=== PATIENT | male | born 1985 | race Caucasian/White ===

== ENCOUNTER 2017-10-18 10:04 | Inpatient (IN) | payer OTHER ==
[~2017-10-18] VITALS: Ht 180.3 cm; Wt 95.5 kg
--- NOTE | ~2017-10-18 | OP ---
PATIENT NAME: JUVENAL MENDOZA MEDICAL RECORD: [id number] :85 LOCATION:[id number] ADMISSION DATE:10/18/17 SURGEON: RAMON BAKER MD DATE OF OPERATION: 10/18/2017 SURGEON: Ramon Baker MD PREOPERATIVE DIAGNOSIS: Rectal foreign body. POSTOPERATIVE DIAGNOSIS: Retained rectal foreign body. ANESTHESIA: Total intravenous anesthesia. PROCEDURE: Flexible sigmoidoscopy with attempted retrieval of rectal foreign body. COMPLICATIONS: None. SPECIMENS: None. Case was contaminated. ESTIMATED BLOOD LOSS: 40 cc. FINANCIAL LEGAL ASSISTANT: Mark Koehler DO OPERATIVE COURSE: After consent was obtained, the patient was taken to the endoscopy suite. A timeout was taken to confirm the correct patient and procedure, total intravenous anesthesia was given. The patient was placed in the left lateral decubitus position. Digital rectal exam was performed. The foreign body was not able to be palpated. At this time a flexible sigmoidoscopy was performed, a round foam ball of approximately 7.5 cm in diameter was noted to be just above the pelvic brim at approximately 20-25 cm. At this time, the wire was placed through the scope. The wire was past the foreign body. Next, a 20-[place] Collado was advanced along the wire under direct laparoscopic vision. Once the balloon catheter was advanced beyond the ball, it was filled with 30 cc of normal saline. Tension was held on the Collado catheter, the foam ball descended to approximately 10 cm. The narrowing at the pelvic brim at the coccyx, the ball was unable to be traversed across at that time and the ball was just palpable at this time, a second Collado catheter was passed beyond the foreign body and it was again filled with 3 cc of saline. Tension was applied, the ball was unable to be again traversed across the pelvic brim. A basket retrieval device was placed in his rectum. The ball would not tilt in the opening of the basket retrieval device. The ball was grasped with a [place] clamp and chunks of the foam ball ripped off the ball once grabbed with the Malcolm clamp and placed under tension. At this time, Dr. Mark Koehler assisted, I had previously spent approximately 2 hours using various endoscopic maneuvers trying to retrieve this foreign body, with Dr. Koehler was there, he controlled the scope, again I passed multiple wires above the foam ball as well as basket retrieval devices, the ball was unable to be retrieved and delivered through the rectum endoscopically. After approximately 3 hours, we terminated the procedure and at the end of the case, all needle and instrument counts were correct. No complications occurred. The patient tolerated the procedure well. The patient returned to the recovery room OPERATIVE REPORT [id number] KELLYJUVENAL MARIA ELENA in satisfactory condition. The patient was scheduled for operative intervention first thing in the morning. At the end of the case, all needle and instrument counts were correct. No complications occurred. TRANSINT:[id number] Voice Confirmation ID: [id number] DOCUMENT ID: [id number] RAMON BAKER MD at 0803 CC: [id number] DICTATION DATE: 10/18/171757 [employer] DESIGNER: 10/18/17 2200 ADM IN [place] [id number] [place] [address]
--- NOTE | ~2017-10-18 | OP ---
PATIENT NAME: JUVENAL MENDOZA MEDICAL RECORD: [id number] :85 LOCATION:[id number] ADMISSION DATE:10/18/17 SURGEON: RAMON BAKER MD DATE OF OPERATION: 10/19/2017 SURGEON: Ramon Baker MD PREOPERATIVE DIAGNOSIS: Impacted rectal foreign body. POSTOPERATIVE DIAGNOSIS: Impacted rectal foreign body. PROCEDURE PERFORMED: 1. Exploratory laparotomy. 2. Rectotomy with removal of foreign body. 3. Diverting loop ileostomy. ANESTHESIA: General. COMPLICATIONS: None. SPECIMENS: Rectal foreign body. ESTIMATED BLOOD LOSS: 50 cc. Case was contaminated. OPERATIVE COURSE: After consent was obtained, the patient was taken to the operating room and placed in the supine position on the operating table. Next, general anesthesia was given via endotracheal intubation after a timeout was performed to confirm the correct patient and procedure. A lower midline abdominal incision was made using a 15 blade scalpel. Dissection continued to the level of the external oblique fascia using electrocautery. The midline fascia was opened with electrocautery. The peritoneum was grasped with Brisa clamps and incised with Metzenbaum scissors. The remaining portion of the incision was then opened under direct vision with electrocautery. An Juan retractor was placed. An Ioban had been placed in the abdomen at the time the patient's abdomen was prepped. The sigmoid colon and rectum were identified. The foreign body was palpated. The rectum was opened with a linear incision using a 15-blade scalpel approximately 8 cm. The foreign body was extracted and sent to pathology. The rectum was then irrigated and suctioned. The rectum was closed in 2 layers, a running 3-0 Stratafix suture. The suture line was then imbricated using 3-0 Vicryl silk suture in an interrupted fashion. The rectum and pelvis was then copiously irrigated and suctioned. There were multiple other serosal defects in the area of the impacted foreign body. Serosal defect was repaired with interrupted 3-0 silk suture. BioGlue was placed. The omentum was mobilized and placed on the anterior rectum between the rectum and the bladder. A ALO drain was placed through the left lower quadrant into the rectum. The terminal ileum was identified approximately 12 cm from the ileocecal valve. A Davin was placed in the ileum. A right lower quadrant incision was made, a cruciate incision was made in the fascia. The peritoneum was incised using electrocautery. A diverting loop ileostomy was then delivered through the right lower quadrant incision. The Juan retractor was removed. The fascia was closed with #1 looped PDS. Skin was closed with maria fernanda. ALO drain was secured with 2-0 nylon suture. The midline incision was then covered. Gloves were changed. The right lower quadrant loop ileostomy was then fashioned as a [facility] OPERATIVE REPORT [id number] JUVENAL MENDOZA ileostomy using 3-0 Vicryl suture and ostomy bag was applied. At the end of the case, all needle and instrument counts were correct. No complications occurred. The patient was extubated and transferred to the PACU in stable condition. TRANSINT:[id number] Voice Confirmation ID: [id number] DOCUMENT ID: [id number] RAMON BAKER MD at 1158 CC: [id number] DICTATION DATE: 10/19/17 1052 FLOOR LAYER HELPER: 10/19/17 1148 ADM IN [place] [id number] [place] [id number]
[2017-10-18 22:33] VITALS: BP 111/85; Ht 180.3 cm; Wt 95.5 kg
[2017-10-19] VITALS (12 sets, daily range): BP systolic 103–150; BP diastolic 57–79
[2017-10-19 04:31] LABS: BASOPHILS 0 % (0-2); EOSINOPHILS 0 % (0-7); HEMATOCRIT 44.1 % (42.0-54.0); HEMOGLOBIN 15.2 g/dL (13.5-17.5); IMMATURE GRANULOCYTES 0.3 % (0-5); LYMPHOCYTES 5.4 % (15-50); MCH 31.4 pg (26.0-34.0); MCHC 34.5 g/dL (31.0-37.0); MCV 91.1 fL (80.0-100.0); MEAN PLATELET VOLUME 10.8 fL (7.4-10.4); MONOCYTES 7.7 % (2-11); NEUTROPHILS 86.6 % (40-80); PLATELET COUNT 234 10x3/uL (130-400); RBC 4.84 10x6/uL (4.20-6.10); RDW 12.2 % (11.5-14.5); WBC 14.8 10x3/uL (4.8-10.8)
[2017-10-19 05:03] LABS: ANION GAP 12.3 mmol/L (8-16); CALCIUM 8.3 mg/dL (8.5-10.1); CARBON DIOXIDE 26.2 mmol/L (21.0-32.0); CREATININE - SERUM 1.2 mg/dL (0.6-1.3); MAGNESIUM - SERUM 1.5 mg/dL (1.8-2.4); POTASSIUM - SERUM 3.5 mmol/L (3.5-5.1)
[2017-10-20] VITALS: BP 121/68
[2017-10-20 04:00] VITALS: BP 130/67
[2017-10-20 06:05] LABS: CALC OSMOLALITY 267 mosm/kg (275-300); CALCIUM 8.2 mg/dL (8.5-10.1); CARBON DIOXIDE 25.7 mmol/L (21.0-32.0); CHLORIDE - SERUM 101 mmol/L (98-107); CREATININE - SERUM 1.1 mg/dL (0.6-1.3); GLUCOSE 122 mg/dL (74-106); POTASSIUM - SERUM 3.9 mmol/L (3.5-5.1); SODIUM 134 mmol/L (136-145); UREA NITROGEN 9 mg/dL (7-18); eGFR NON AFRICAN AMERICAN 82 mL/min (90-120)
[2017-10-20 06:45] LABS: HEMATOCRIT 42.7 % (42.0-54.0); HEMOGLOBIN 14.2 g/dL (13.5-17.5); LYMPHOCYTES 9.3 % (15-50); MCH 30.5 pg (26.0-34.0); MCHC 33.3 g/dL (31.0-37.0); MCV 91.6 fL (80.0-100.0); MEAN PLATELET VOLUME 10.5 fL (7.4-10.4); NEUTROPHILS 83.5 % (40-80); PLATELET COUNT 206 10x3/uL (130-400); RBC 4.66 10x6/uL (4.20-6.10); RDW 12.5 % (11.5-14.5); WBC 12.7 10x3/uL (4.8-10.8)
[2017-10-20 07:54] VITALS: BP 118/72
[2017-10-20] MEDS ORDERED: HYDROCODON-ACE1 EAC7 PO (09:11)
[2017-10-20] MEDS ORDERED: IMODIUM2 MG PO (09:13)
[2017-10-20] MEDS ORDERED: LEVAQUIN500 MG PO (13:03)
[2017-10-20] MEDS ORDERED: FLAGYL500 MG PO (13:03)
== END 2017-10-20 15:23 | disposition home health service (06) | DRG 331 ==
LOC: D.ER 10:04 → OBSVTIME 13:14 → D.MS 13:14
PROVIDERS: Surgery
PROC: 0D7P8ZZ Dilation of Rectum, Via Natural or Artificial Opening Endoscopic (ICD-10-PCS; principal; 2017-10-18 14:23)
PROC: 0DCP0ZZ Extirpation of Matter from Rectum, Open Approach (ICD-10-PCS; 2017-10-19)
PROC: 0D1B0Z4 Bypass Ileum to Cutaneous, Open Approach (ICD-10-PCS; 2017-10-19 12:00)
DX: T18.5XXA Foreign body in anus and rectum, initial encounter (principal); X58.XXXA Exposure to other specified factors, initial encounter

== ENCOUNTER → 2017-12-18 07:13 | Outpatient (CLI) | payer OTHER ==
[2017-10-18 22:33] VITALS: BMI 29.3
[~2017-12-18 07:13] MED LIST: CYCLOBENZAPRINE10 MG PO; FLAGYL500 MG PO; HYDROCODON-ACE1 EAC7 PO; IMODIUM2 MG PO; LEVAQUIN500 MG PO; MIRALAX17 GM PO
== END | disposition home or self-care (01) ==
LOC: D.RAD 07:13
DX: K56.609 Unspecified intestinal obstruction, unspecified as to partial versus complete obstruction (principal)

== ENCOUNTER 2017-12-30 07:49 | Inpatient (IN) | payer OTHER ==
[~2017-12-30] VITALS: Ht 180.3 cm; Wt 85.9 kg
[~2017-12-30 07:49] MED LIST changes: -CYCLOBENZAPRINE10 MG PO; -MIRALAX17 GM PO
[2017-12-30 09:48] VITALS: BP 123/55; BMI 26.5
[2017-12-30 20:00] VITALS: BP 119/78
[2017-12-31] VITALS: BP 123/81
[2017-12-31 02:39] VITALS: Ht 180.3 cm; Wt 85.9 kg
[2017-12-31 04:00] VITALS: BP 124/77
[2017-12-31 05:09] LABS: BASOPHILS 0 % (0-2); EOSINOPHILS 0 % (0-7); HEMATOCRIT 35.1 % (42.0-54.0); HEMOGLOBIN 12.1 g/dL (13.5-17.5); IMMATURE GRANULOCYTES 0.4 % (0-5); LYMPHOCYTES 8.6 % (15-50); MCHC 34.5 g/dL (31.0-37.0); MEAN PLATELET VOLUME 9.9 fL (7.4-10.4); MONOCYTES 7.2 % (2-11); NEUTROPHILS 83.8 % (40-80); PLATELET COUNT 247 10x3/uL (130-400); RDW 13.2 % (11.5-14.5); WBC 14.1 10x3/uL (4.8-10.8)
[2017-12-31 05:22] LABS: CALC OSMOLALITY 275 mosm/kg (275-300); CALCIUM 8.3 mg/dL (8.5-10.1); CARBON DIOXIDE 23.3 mmol/L (21.0-32.0); CHLORIDE - SERUM 105 mmol/L (98-107); CREATININE - SERUM 1.1 mg/dL (0.6-1.3); GLUCOSE 144 mg/dL (74-106); MAGNESIUM - SERUM 1.6 mg/dL (1.8-2.4); POTASSIUM - SERUM 4.6 mmol/L (3.5-5.1); SODIUM 136 mmol/L (136-145); UREA NITROGEN 15 mg/dL (7-18); eGFR NON AFRICAN AMERICAN 82 mL/min (90-120)
[2017-12-31 09:19] VITALS: BP 118/68
[2017-12-31 13:03] VITALS: BP 123/71
[2017-12-31 17:18] VITALS: BP 130/71
[2017-12-31 20:02] VITALS: BP 117/65
[2018-01-01 00:17] VITALS: BP 127/55
[2018-01-01 04:59] VITALS: BP 128/74
[2018-01-01 06:19] LABS: BASOPHILS 0.1 % (0-2); EOSINOPHILS 0.3 % (0-7); HEMATOCRIT 31.2 % (42.0-54.0); HEMOGLOBIN 10.3 g/dL (13.5-17.5); IMMATURE GRANULOCYTES 0.2 % (0-5); LYMPHOCYTES 24.2 % (15-50); MCH 30.2 pg (26.0-34.0); MCV 91.5 fL (80.0-100.0); MEAN PLATELET VOLUME 9.8 fL (7.4-10.4); MONOCYTES 9.3 % (2-11); NEUTROPHILS 65.9 % (40-80); PLATELET COUNT 224 10x3/uL (130-400); RBC 3.41 10x6/uL (4.20-6.10); RDW 13.6 % (11.5-14.5)
[2018-01-01 06:24] LABS: WBC 9.1 10x3/uL (4.8-10.8)
[2018-01-01 06:31] LABS: CHLORIDE - SERUM 105 mmol/L (98-107); CREATININE - SERUM 0.9 mg/dL (0.6-1.3); GLUCOSE 105 mg/dL (74-106); SODIUM 140 mmol/L (136-145); eGFR NON AFRICAN AMERICAN > 90 mL/min (90-120)
[2018-01-01 06:40] LABS: CALC OSMOLALITY 276 mosm/kg (275-300); CARBON DIOXIDE 30.1 mmol/L (21.0-32.0); MAGNESIUM - SERUM 2.1 mg/dL (1.8-2.4); POTASSIUM - SERUM 3.7 mmol/L (3.5-5.1); UREA NITROGEN 8 mg/dL (7-18)
[2018-01-01 12:26] VITALS: BP 124/75
[2018-01-01 16:04] VITALS: BP 127/73
[2018-01-01 19:28] VITALS: BP 113/62
[2018-01-02 04:22] VITALS: BP 107/62
[2018-01-02 05:30] LABS: BASOPHILS 0.1 % (0-2); HEMATOCRIT 31.2 % (42.0-54.0); HEMOGLOBIN 10.3 g/dL (13.5-17.5); IMMATURE GRANULOCYTES 0.2 % (0-5); LYMPHOCYTES 23.1 % (15-50); MCH 30.3 pg (26.0-34.0); MCV 91.8 fL (80.0-100.0); MEAN PLATELET VOLUME 9.8 fL (7.4-10.4); MONOCYTES 10.8 % (2-11); NEUTROPHILS 64.8 % (40-80); PLATELET COUNT 243 10x3/uL (130-400); RDW 13.4 % (11.5-14.5); WBC 9.2 10x3/uL (4.8-10.8)
[2018-01-02 06:00] LABS: CALC OSMOLALITY 278 mosm/kg (275-300); CALCIUM 8.3 mg/dL (8.5-10.1); CARBON DIOXIDE 29.6 mmol/L (21.0-32.0); CHLORIDE - SERUM 104 mmol/L (98-107); CREATININE - SERUM 1.1 mg/dL (0.6-1.3); GLUCOSE 103 mg/dL (74-106); MAGNESIUM - SERUM 2.4 mg/dL (1.8-2.4); POTASSIUM - SERUM 3.5 mmol/L (3.5-5.1); SODIUM 140 mmol/L (136-145); eGFR NON AFRICAN AMERICAN 82 mL/min (90-120)
[2018-01-02 06:02] LABS: UREA NITROGEN 12 mg/dL (7-18)
[2018-01-02 09:30] VITALS: BP 111/67
[2018-01-02 13:40] VITALS: BP 114/66
[2018-01-02 16:00] VITALS: BP 134/70
[2018-01-02 20:00] VITALS: BP 120/70
[2018-01-03 04:00] VITALS: BP 123/60
[2018-01-03 05:21] LABS: BASOPHILS 0.1 % (0-2); EOSINOPHILS 3.6 % (0-7); HEMOGLOBIN 9.7 g/dL (13.5-17.5); IMMATURE GRANULOCYTES 0.3 % (0-5); LYMPHOCYTES 27.3 % (15-50); MCH 30.3 pg (26.0-34.0); MCHC 33.4 g/dL (31.0-37.0); MCV 90.6 fL (80.0-100.0); MEAN PLATELET VOLUME 9.5 fL (7.4-10.4); MONOCYTES 9.1 % (2-11); NEUTROPHILS 59.6 % (40-80); PLATELET COUNT 239 10x3/uL (130-400); RDW 13.3 % (11.5-14.5)
[2018-01-03 05:26] LABS: WBC 6.7 10x3/uL (4.8-10.8)
[2018-01-03 05:41] LABS: CALC OSMOLALITY 279 mosm/kg (275-300); CALCIUM 8.1 mg/dL (8.5-10.1); CARBON DIOXIDE 30.6 mmol/L (21.0-32.0); CHLORIDE - SERUM 106 mmol/L (98-107); GLUCOSE 102 mg/dL (74-106); MAGNESIUM - SERUM 2.1 mg/dL (1.8-2.4); POTASSIUM - SERUM 3.7 mmol/L (3.5-5.1); SODIUM 141 mmol/L (136-145); UREA NITROGEN 11 mg/dL (7-18); eGFR NON AFRICAN AMERICAN > 90 mL/min (90-120)
[2018-01-03 09:27] VITALS: BP 114/61
[2018-01-03 13:40] VITALS: BP 108/78
== END 2018-01-03 20:42 | disposition home or self-care (01) | DRG 331 ==
LOC: D.SDCHOLD 07:49 → D.MS 07:49 → D.SDCHOLD 08:00 → D.MS 16:33
PROVIDERS: Surgery
PROC: 0DBB0ZZ Excision of Ileum, Open Approach (ICD-10-PCS; principal; 2017-12-30 10:15)
DX: Z43.2 Encounter for attention to ileostomy (principal)

== ENCOUNTER 2018-01-03 22:20 | Inpatient (IN) | payer OTHER ==
[~2018-01-03] VITALS: Ht 180.3 cm; Wt 85.9 kg
[2018-01-03 23:34] LABS: BASOPHILS 0.1 % (0-2); EOSINOPHILS 1.5 % (0-7); HEMATOCRIT 30.9 % (42.0-54.0); HEMOGLOBIN 10.5 g/dL (13.5-17.5); IMMATURE GRANULOCYTES 0.3 % (0-5); LYMPHOCYTES 13.1 % (15-50); MCH 30.9 pg (26.0-34.0); MCV 90.9 fL (80.0-100.0); MEAN PLATELET VOLUME 9.3 fL (7.4-10.4); MONOCYTES 7.2 % (2-11); NEUTROPHILS 77.8 % (40-80); PLATELET COUNT 272 10x3/uL (130-400); RDW 13.5 % (11.5-14.5); WBC 9.3 10x3/uL (4.8-10.8)
[2018-01-03 23:46] LABS: ALBUMIN 3.1 g/dL (3.4-5.0); ALKALINE PHOSPHATASE 35 U/L (46-116); ALT (SGPT) 72 U/L (10-68); AMYLASE - SERUM 25 U/L (25-115); CALCIUM 8.5 mg/dL (8.5-10.1); CARBON DIOXIDE 27.7 mmol/L (21.0-32.0); GLUCOSE 136 mg/dL (74-106); LIPASE 107 U/L (73-393); PROTEIN - SERUM 6.8 g/dL (6.4-8.2); UREA NITROGEN 12 mg/dL (7-18); eGFR NON AFRICAN AMERICAN > 90 mL/min (90-120)
[2018-01-03 23:51] LABS: CALC OSMOLALITY 275 mosm/kg (275-300); CHLORIDE - SERUM 106 mmol/L (98-107); POTASSIUM - SERUM 3.2 mmol/L (3.5-5.1); SODIUM 137 mmol/L (136-145)
[2018-01-03 23:58] LABS: APPEARANCE CLEAR (CLEAR); BILIRUBIN NEGATIVE (NEGATIVE); COLOR YELLOW (YELLOW); GLUCOSE NEGATIVE (NEGATIVE); KETONE MODERATE mg/dL (NEGATIVE); NITRITE NEGATIVE (NEGATIVE); PROTEIN NEGATIVE (NEGATIVE); SPECIFIC GRAVITY 1.015 (1.005-1.020); UROBILINOGEN NORMAL (NORMAL)
[2018-01-04 02:33] VITALS: BP 153/85; BMI 26.4
[2018-01-04 05:26] VITALS: BP 112/64
[2018-01-04 09:23] VITALS: BP 119/71
[2018-01-04 14:42] VITALS: BP 119/57
[2018-01-04 15:37] VITALS: Ht 180.3 cm; Wt 85.9 kg
[2018-01-04 17:59] VITALS: BP 111/69
[2018-01-04 21:36] VITALS: BP 123/71
[2018-01-05 04:54] VITALS: BP 133/71
[2018-01-05 06:08] LABS: BASOPHILS 0.1 % (0-2); EOSINOPHILS 3.6 % (0-7); HEMATOCRIT 27.3 % (42.0-54.0); HEMOGLOBIN 9.2 g/dL (13.5-17.5); IMMATURE GRANULOCYTES 0.3 % (0-5); LYMPHOCYTES 25.1 % (15-50); MCHC 33.7 g/dL (31.0-37.0); MCV 91.9 fL (80.0-100.0); MEAN PLATELET VOLUME 9.6 fL (7.4-10.4); MONOCYTES 9.2 % (2-11); NEUTROPHILS 61.7 % (40-80); PLATELET COUNT 273 10x3/uL (130-400); RBC 2.97 10x6/uL (4.20-6.10); RDW 13.9 % (11.5-14.5)
[2018-01-05 06:19] LABS: CALC OSMOLALITY 282 mosm/kg (275-300); CALCIUM 8.3 mg/dL (8.5-10.1); CARBON DIOXIDE 29.1 mmol/L (21.0-32.0); CHLORIDE - SERUM 107 mmol/L (98-107); GLUCOSE 97 mg/dL (74-106); MAGNESIUM - SERUM 2.1 mg/dL (1.8-2.4); POTASSIUM - SERUM 3.5 mmol/L (3.5-5.1); SODIUM 142 mmol/L (136-145); UREA NITROGEN 13 mg/dL (7-18); WBC 6.9 10x3/uL (4.8-10.8); eGFR NON AFRICAN AMERICAN > 90 mL/min (90-120)
[2018-01-05] MEDS ORDERED: CYCLOBENZAPRINE10 MG PO (08:50)
[2018-01-05] MEDS ORDERED: MIRALAX17 GM PO (08:51)
[2018-01-05 10:38] VITALS: BP 122/73
== END 2018-01-05 11:30 | disposition home or self-care (01) | DRG 948 ==
LOC: D.ER 22:20 → D.MS 23:45
PROVIDERS: Physician Assistant Medical; Surgery
DX: G89.18 Other acute postprocedural pain (principal); R11.2 Nausea with vomiting, unspecified; Z98.890 Other specified postprocedural states